=== PATIENT | female | born 1975 | race Caucasian/White ===

== ENCOUNTER 2018-08-10 12:45 | Day surgery (SDC) | payer OTHER ==
[2018-08-10] MEDS ORDERED: LIDOCAINE 1% (MDV) 20 ML INJ (14:58)
[2018-08-10] MEDS ORDERED: MIDAZOLAM 1 MG/ML 2 ML INJ (15:08)
[2018-08-10] MEDS ORDERED: FENTAnyl 50 MCG/ML VIAL (15:08)
== END 2018-08-10 17:15 | disposition home or self-care (01) ==
LOC: SDS 12:45
DX: C50.912 Malignant neoplasm of unspecified site of left female breast (principal)
CPT/HCPCS: 20220; 77012; 88305; 88313; 88341; 88342